=== PATIENT | female | born 1945 ===

== ENCOUNTER 2019-06-01 06:15 | Outpatient (CLI) | payer MEDICARE | END 2019-06-01 06:16 | disposition short-term general hospital (02) | LOC: EMS 06:15 | PROVIDERS: ATTEND Surgery | DX: R10.10 Upper abdominal pain, unspecified (principal); M54.9 Dorsalgia, unspecified; R11.10 Vomiting, unspecified | CPT/HCPCS: A0425; A0427; A0429 ==